=== PATIENT | male | born 1940 | race Caucasian/White ===

== ENCOUNTER 2019-02-09 11:04 | Inpatient (IN) ==
[2019-02-09] MEDS ORDERED: 0.9 % Sodium Chloride 1,000 ML ONE ×2 (11:51→13:32)
[2019-02-09] MEDS ORDERED: *HR* Phenylephrine 10 MG/ML VIAL ONE (11:51)
[2019-02-09] MEDS ORDERED: Verapamil 5 MG/2 ML VIAL ONE (11:51)
[2019-02-09] MEDS ORDERED: Nitroglycerin 25 MG/250 ML INFUS..BTL IVC ONE (11:52)
[2019-02-09] MEDS ORDERED: *HR* Heparin 10,000 UNIT/10 ML VIAL ONE ×2 (11:52→13:18)
[2019-02-09] MEDS ORDERED: Nitroglycerin 1,000 MCG/10 ML VIAL IV ONE (11:52)
[2019-02-09] MEDS ORDERED: Heparin 1,000 UNITS/500 mL 500 ML ONE ×2 (11:52→14:42)
[2019-02-09] MEDS ORDERED: niCARdipine 20 MG/200 ML MLS IVC ONE (11:52)
--- NOTE | 2019-02-09 12:25 | Pre-Sedation Evaluation ---
Pre-sedation evaluation - Pre-sedation checklist Date of procedure: 02/09/19 Procedure: [facility] Recent Vitals: vs as documented in emr H&P (including ROS) documented in medical record: Yes Previous reaction to sedatives/anesthetics: No Dietary Status: NPO after Midnight Airway Assessment: Patient can open mouth completely, TMJ function normal ASA Classification *see protocol: CLASS III-Severe systemic disease Plan of Care: Pt appropriate candidate for procedure/moderate/conscious sedation, Risks/benefits of procedure/sedation discussed w/ patient/family, If not NPO; Risk of intake outweiged by necessity to perform procedure Cardiac Registry (Cardio Only) - Functional Capacity Functional Capacity: >=4 METS with symptoms - Clincal Frailty Scale Clinical Frailty Scale: Managing Well
[2019-02-09] MEDS: 0.9 % Sodium Chloride 1,000 ML IVC SCH ×2 (12:27→19:15)
--- NOTE | 2019-02-09 12:29 | History & Physical Report ---
Date of Encounter: 02/09/19 Time of Encounter: 12:30 24 Hour HP Update - Instructions Instructions: If the History and Physical is less than 30 days old and was completed prior to A.M. admission and or procedure and has NOT been updated on calendar day of procedure please complete this update prior to performing procedure. - Update Patient reports changes in Medical Condition: No Changes in examination, assessment, or condition: No Changes in Medication: No Preop tests/diagnostics Reviewed: Yes Surgery Remains Indicated: Yes Consent for Planned Operative Procedure(s) Verified: Yes - Attending Attestation Patient severe LAD stenosis 95%, responded very poorly to PTCA last week, thus rotational atherectomy was deemed best option for optimal revascularization outcome for patient. A/R/B of high risk rotational atherectomy PCI of LAD with severe systolic congestive heart failure EF 25%, NSTEMI discussed with patient and family including elevated risk of /CVA/emergency surgery/bleeding/SUMAYA/MT but still <5%. They aware and agreeable with proceeding.
[2019-02-09] MEDS ORDERED: *HR* Ticagrelor 90 MG TABLET ONE (12:32)
[2019-02-09] MEDS ORDERED: *HR* FentaNYL (PF) 100 MCG/2 ML VIAL ONE (12:50)
[2019-02-09] MEDS ORDERED: *HR* Midazolam HCl 2 MG/2 ML VIAL ONE ×2 (12:50→13:07)
[2019-02-09] MEDS ORDERED: Iopamidol 125 ML INFUS..BTL ONE (12:52)
[2019-02-09] MEDS ORDERED: D5% in Water 250 ML ONE (12:59)
[2019-02-09] MEDS ORDERED: Morphine Sulfate 2 MG/ML SYRINGE IVP PRN (15:27)
[2019-02-09] MEDS ORDERED: Ondansetron 4 MG/2 ML VIAL IVP PRN (15:27)
--- NOTE | 2019-02-09 15:45 | Invasive Diagnostic Lab Proc ---
Name: yTrone Lance Date of Study: 02/09/2019 Date: 1940 Ht: 68.0in Medical Record#: [id number] Age: 79 Wt: 145.00lb Gender: Male BSA: 1.78 Order #: [id number] BMI: 22.05 Physicians Procedure Physician: Shaan Stewart MD, [facility] Referring MD: Shima montoya team Referring MD: Staff Name Position Time In MaddyKati RN Pre-Op Nurse 11:30 AM Saundra Almanzar RN Pre-Op Nurse 11:30 AM Radha Ospina RT (R) Monitor 03:37 PM Sites, Ana RT (R) Scrub 03:38 PM Kodak Berry RN Wet Roller 03:38 PM Procedures Performed Procedure L HRT ARTERY/VENTRICLE ANGIO PRQ CARD STENT/ATH/ANGIO 1st VSL Insert VAD artery access PRQ CARD JOSEFA STENT W/ANGIO 1 VSL IVUS CORONARY 1ST VESSEL S&I Pre-Procedure Checklist Informed consent is complete signed and on chart. H&P is on chart. ID band is on and ID verified with patient. Patient NPO for procedure The procedure was described for the patient and questions were answered. ECG is on chart. Plan of Care Patient will tolerate the procedure without complications. Adequate level of comfort will be maintained. Hemodynamics will remain stable Patient will recover from procedure without complications. Respiratory function will be maintained. Cardiac rhythm will remain stable. Patient temperature will be maintained. Patient and/or family have verbalized understanding of the procedure. Patient Education Chief Complaint/Reason for Test: Cardiac Cath Developmental Category: Geriatric (65+ years) Developmentally Appropriate for Age: Yes Learning Barriers: None Education Needs: Procedure Education Method: Verbal Information Taught: Cardiac Cath Educational Evaluation: Able to repeat information Intravenous Access Time IV Size Location DC'd Fluid/Drip Rate Units RN 11:58 AM Started with 20g 1 1/4" Lt Wrist 0.9NaCl 25 ml/hr Saundra Almanzar RN Allergies No Known Allergies Vital Signs Time BP (mmHg) HR (bpm) O2 Sat. RR (bpm) LOC 11:41 AM 125 / 76 61 100 % 16 5 = Fully awake and oriented or at pre-proc level 12:51 PM / % 5 = Fully awake and oriented or at pre-proc level 12:51 PM / % 4 = Oriented but drowsy 01:06 PM / % 4 = Oriented but drowsy 01:21 PM / % 4 = Oriented but drowsy 01:36 PM / % 4 = Oriented but drowsy 01:51 PM / % 4 = Oriented but drowsy 02:06 PM / % 4 = Oriented but drowsy 02:21 PM / % 4 = Oriented but drowsy 02:36 PM / % 4 = Oriented but drowsy 02:52 PM / % 4 = Oriented but drowsy 12:51 PM 158 / 86 58 100 % 17 12:55 PM 129 / 76 86 97 % 15 01:00 PM 125 / 70 64 98 % 16 01:05 PM 126 / 78 62 99 % 19 01:10 PM 123 / 74 60 97 % 16 01:15 PM 103 / 76 62 98 % 21 01:20 PM 85 / 56 79 96 % 14 01:25 PM 73 / 49 52 96 % 18 01:28 PM 64 / 48 48 98 % 13 01:30 PM 127 / 91 57 98 % 16 01:35 PM 129 / 92 64 98 % 15 01:40 PM 132 / 89 58 99 % 16 01:45 PM 116 / 88 89 98 % 13 01:50 PM 116 / 91 64 99 % 18 01:56 PM 120 / 93 74 99 % 13 02:01 PM 139 / 100 70 100 % 15 02:05 PM 102 / 87 107 100 % 16 02:07 PM 97 / 65 67 95 % 18 02:08 PM 86 / 70 56 97 % 12 02:11 PM 105 / 54 59 99 % 13 02:16 PM 134 / 96 62 96 % 14 02:20 PM 140 / 90 65 96 % 14 02:25 PM 141 / 96 68 99 % 17 02:30 PM 143 / 100 66 97 % 16 02:36 PM 184 / 122 80 99 % 14 02:40 PM 161 / 111 70 100 % 11 02:45 PM 125 / 106 73 96 % 11 02:50 PM 134 / 109 87 97 % 15 02:55 PM 139 / 108 61 99 % 17 03:00 PM 144 / 107 68 100 % 25 03:05 PM 152 / 105 73 99 % 20 03:10 PM 153 / 100 73 100 % 17 03:15 PM 156 / 104 91 100 % 13 03:20 PM 159 / 103 91 100 % 18 Procedural Medications Time Medication Dose Units Method Given By 12:40 PM Brilinta 180 mg Orally Lavaca, Saundra RN 12:51 PM Oxygen 2 L/min nasal cannula Kodak Berry RN 12:51 PM Versed 2 mg Intravenous Kodak Berry RN 12:51 PM Fentanyl 50 mcg Intravenous Kodak Berry RN 01:06 PM Lidocaine 2% 18 ml Subcutaneous Shaan Stewart MD, [facility] 01:07 PM Versed 1 mg Intravenous Kodak Berry RN 01:07 PM Fentanyl 25 mcg Intravenous Kodak Berry RN 01:17 PM Heparin 4000 units Intravenous Kodak Berry RN 01:18 PM Lidocaine 2% 20 ml Subcutaneous Shaan Stewart MD, [facility] 01:29 PM Neosynephrine 100 mcg Intravenous Kodak Berry RN 02:04 PM Nitroglycerin 200 mcg Intracoronary Shaan Stewart MD 02:09 PM Neosporin 50 mcg Intravenous Kodak Berry RN 02:09 PM Dopamine 10 mg/kg/min Intravenous Kodak Berry RN 02:34 PM Versed 1 mg Intravenous Kodak Berry RN ASA Classification: CLASS III- Severe systemic disease (i.e. prior AMI, diabetes with vascular complications, morbid obesity) Elda Score Preprocedure Postprocedure Activity 2- Moves 4 extremities sustained head lift Activity 2- Moves 4 extremities sustained head lift Circulation 2- SBP +/= 20 points of pre-anesthetic level Circulation 2- SBP +/= 20 points of pre-anesthetic level Consciousness 2- Awake and alert oriented x 3 Consciousness 2- Awake and alert oriented x 3 O2 Saturation 2- Able to maintain O2 satruation of 92% on room air O2 Saturation 2- Able to maintain O2 satruation of 92% on room air Respiratory 2- Able to deep breathe and cough well Respiratory 2- Able to deep breathe and cough well Total Score 10 Total Score 10 Contrast Agent: Isovue Diagnostic Contrast: 108 ml Total Contrast: 108 ml Fluoro Dose: 30 mGy Activated Clotting Time Time Seconds to Clot 01:25 PM 264 01:47 PM 01:55 PM 297 02:14 PM 325 02:47 PM 316 03:12 PM 224 Procedure Log Time Note Enter By 12:40 PM Time: 12:40 Brilinta 180 mg Orally Given by Saundra Almanzar RN [email or web address] 12:40 PM pt chewed Brilinta [email or web address] 12:47 PM Physician arrived 12:47 [facility] 12:47 PM Eric and raine completed [facility] 12:47 PM Sign in performed according to hospital policy. Informed consent was obtained. [facility] 12:49 PM CathStat 12:49 PM Vitals capture started with the following parameters, Patient=Adult, Interval=5 min, Initial Llzhbgqu=405 mmHg, Deflation Rate=3 mmHg, Cuff placed on Right Arm 12:51 PM HR=58 bpm, UWDQ=293/86 mmhg, FtA9=102.0 %, Resp=17 B/min 12:51 PM Time: 12:51 Patient comfortable and pain free: Yes [facility] :51 PM Time: :51LOC: 5 = Fully awake and oriented or at pre-proc level [facility] 12:51 PM Pt arrived to blood bank laboratory professional 2 at 12:51 [facility] 12:51 PM Patient charges- Angio tray pack, Navilyst 3mm J, Pulse Oximetry and ACIST tubing and transducer [facility] 12:51 PM Hair removed from procedure site in holding area using clippers. Bilateral groin prepped with Chloraprep by Radha Ospina), then patient was draped. Skin intact. [facility] :51 PM Time: 12:51 Oxygen on at 2 L/min per nasal cannula by Kodak Berry RN [facility] 12:51 PM Time: 12:51 Versed 2 mg Intravenous Given by Kodka Berry RN [facility] 12:51 PM Time: 12:51 Fentanyl 50 mcg Intravenous Given by Kodak Berry RN [facility] 12:52 PM Procedure start 12:50 [facility] 12:53 PM Recorded ECG: HR=59 Condition=Condition 1 12:54 PM ASA Class CLASS III- Severe systemic disease (i.e. prior AMI, diabetes with vascular complications, morbid obesity) [facility] 12:54 Inflation device was opened. [facility] 12:55 PM HR=86 bpm, ULHC=591/76 mmhg, SpO2=97.0 %, Resp=15 B/min 12:58 PM Pressure channel 1 zeroed. 01:00 PM HR=64 bpm, JAWE=397/70 mmhg, SpO2=98.0 %, Resp=16 B/min 01:05 PM HR=62 bpm, SYZA=598/78 mmhg, SpO2=99.0 %, Resp=19 B/min 01:06 PM Time: 12:51LOC: 4 = Oriented but drowsy [facility] 01:06 PM Time: 12:51 Patient comfortable and pain free: Yes jh:[email or web address] PM Time out was performed according to hospital policy. Conscious sedation and anesthesia was achieved (see medication log with in this report above) : PM Time: 13:06 18 ml Lidocaine 2% to right groin Subcutaneous Given by Shaan Stewart MD, [facility]:07 PM Time: 13:07 Versed 1 mg Intravenous Given by Kodak Berry RN usama:07 PM Time: 13:07 Fentanyl 25 mcg Intravenous Given by Kodak Beryr RN 01:09 PM Micro-Introducer Kit utilized for sheath placement 01:10 PM HR=60 bpm, EMLL=180/74 mmhg, SpO2=97.0 %, Resp=16 B/min 01:10 PM Bolus angiogram of right Femoral complete: 4 ml/sec for a total of 7 mls :10 PM Recorded Pressure: Ao, HR=66, Condition=Condition 1 (Aorta) Ao 118/57/79 01:12 PM perclose inserting into R groin. :15 PM HR=62 bpm, WBTM=769/76 mmhg, SpO2=98.0 %, Resp=21 B/min 01:16 PM An injection of 4 ml. of 7 was used for angiography of the R femoral in the MIKE projection :17 PM Impella 14 Fr. Sheath inserted. :17 PM Time: 13:17 Heparin 4000 units Intravenous Given by Kodak Berry RN :18 PM Time: 13:18 20 ml Lidocaine 2% to left groin Subcutaneous Given by Shaan Stewart MD, [facility]:19 PM Micro-Introducer Kit utilized for sheath placement 01:20 PM Access obtained by percutaneous puncture. 6Fr 10cm Terumo [place] sheath placed in left Femoral artery. [id number] :20 PM HR=79 bpm, NIBP=85/56 mmhg, SpO2=96.0 %, Resp=14 B/min 01:21 PM Time: 13:06LOC: 4 = Oriented but drowsy :21 PM Time: 13:06 Patient comfortable and pain free: Yes :24 PM 0.035 145cm Navilyst 3mmJ wire [id number] 01:24 PM 5Fr Pigtail catheter inserted over the wire [facility] amil 01:25 PM HR=52 bpm, NIBP=73/49 mmhg, SpO2=96.0 %, Resp=18 B/min 01:25 PM At 13:25 the ACT was 264 seconds. amil 01:26 PM Catheter removed amil:27 PM Vitals capture stopped. 01:27 PM Vitals capture started with the following parameters, Patient=Adult, Interval=5 min, Initial Djloalzy=636 mmHg, Deflation Rate=3 mmHg, Cuff placed on Right Arm 01:28 PM HR=48 bpm, NIBP=64/48 mmhg, SpO2=98.0 %, Resp=13 B/min 01:28 PM Perfusion in lab to assist with Impella device.Charla Mims. :28 PM Impella catheter inserted accrossed valve and position in left ventricle. .018 wire removed. Catheter attached to pump. amil:29 PM .018 wire removed. amil:29 PM Vitals capture stopped. 01:29 PM Vitals capture started with the following parameters, Patient=Adult, Interval=5 min, Initial Wloyspkz=400 mmHg, Deflation Rate=3 mmHg, Cuff placed on Right Arm 01:30 PM Time: 13:29 Neosynephrine 100 mcg Intravenous Given by Kodak Berry RN 01:30 PM HR=57 bpm, FNBW=248/91 mmhg, SpO2=98.0 %, Resp=16 B/min 01:30 PM 6Fr CLS 3.5 Runway guide catheter was used to cannulate the PCI vessel successfully. reused? No :31 PM .035 VSI- Lucio Torque 150cm guide wire across target lesion- successful. reused? No :31 PM Impella Pump started in auto. amil 01:35 PM HR=64 bpm, JTPF=387/92 mmhg, SpO2=98.0 %, Resp=15 B/min 01:36 PM Time: 13:21 Patient comfortable and pain free: Yes :36 PM Time: 13:21LOC: 4 = Oriented but drowsy jhamilton 01:40 PM HR=58 bpm, TAOY=492/89 mmhg, SpO2=99.0 %, Resp=16 B/min 01:41 PM 0.009 x 330 RotaWire advanced amil 01:45 PM 1.5mm RotaLink Plus rotoblator catheter placed into Proximal LAD jhamil 01:45 PM HR=89 bpm, MVKH=949/88 mmhg, SpO2=98.0 %, Resp=13 B/min 01:46 PM Rotational athrectomy completed at 165 rpm for 25 seconds jhamilton 01:46 PM Rotational athrectomy completed at 164 rpm for 10 seconds amil 01:48 PM At 13:47 the ACT was greater than 400 seconds. amil 01:49 PM Fifi removed. 01:49 PM Recorded Pressure: Ao, HR=82, Condition=Condition 1 (Aorta) Ao 108/81/92 01:50 PM HR=64 bpm, DZAO=253/91 mmhg, SpO2=99.0 %, Resp=18 B/min 01:51 PM Time: 13:36LOC: 4 = Oriented but drowsy 01:51 PM Time: 13:36 Patient comfortable and pain free: Yes amil 01:52 PM .014 [place] 190cm guide wire across target lesion- successful. reused? No amil 01:53 PM rota wire out. amil 01:54 PM 3.0 mm x 10 mm Pe[place]ody CB MR cutting balloon across target lesion- successful. reused? No amil 01:55 PM Lesion found in Proximal LAD. Pre Stenosis: 90 Pre BARBARA Flow: 01:55 PM At 13:55 the ACT was 297 seconds. 01:56 PM HR=74 bpm, QEYT=810/93 mmhg, SpO2=99.0 %, Resp=13 B/min 01:56 PM Cutting Balloon inflated @ 10 samy for 30 seconds amil 01:57 PM Cutting Balloon inflated @ 10 samy for 27 seconds amilton 01:57 PM Cutting Balloon inflated @ 10 samy for 30 seconds amilton 01:59 PM Recorded Pressure: Ao, HR=87, Condition=Condition 1 (Aorta) Ao 128/79/98 02:01 PM HR=70 bpm, SHSC=208/100 mmhg, IsD0=680.0 %, Resp=15 B/min 02:04 PM Time: 14:04 Nitroglycerin 200 mcg Intracoronary Given by Shaan Stewart MD 02:05 PM RS=175 bpm, UUSF=503/87 mmhg, YgQ1=845.0 %, Resp=16 B/min 02:05 PM 3.6Fr/40mHz [employer] Opti Cross IVUS catheter was inserted into guide catheter and advanced to lesion. IVUS study was done and the catheter was removed. 02:06 PM NIBP STAT measurement started. 02:06 PM Time: 13:51 Patient comfortable and pain free: 02:06 PM Time: 13:51LOC: 4 = Oriented but drowsy 02:07 PM HR=67 bpm, NIBP=97/65 mmhg, SpO2=95.0 %, Resp=18 B/min 02:08 PM NIBP STAT measurement started. 02:08 PM HR=56 bpm, NIBP=86/70 mmhg, SpO2=97.0 %, Resp=12 B/min 02:09 PM Time: 14:09 Neosporin 50 mcg Intravenous Given by Kodak Berry RN daysi 02:11 PM NIBP STAT measurement started. 02:11 PM Time: 14:09 Dopamine 10 mg/kg/min Intravenous Given by Kodak Berry RN Quick pump 02:11 PM HR=59 bpm, MCKC=043/54 mmhg, SpO2=99.0 %, Resp=13 B/min 02:12 PM IVUS catheter removed intact 02:15 PM At 14:14 the ACT was 325 seconds. 02:15 PM .014 PT Graphix 182cm guide wire across target lesion- successful. reused? No 02:15 PM 3.5mm x 28mm Synergy drug-eluting stent across target lesion- successful Lot #[id number] 02:16 PM HR=62 bpm, TVVE=303/96 mmhg, SpO2=96.0 %, Resp=14 B/min 02:18 PM Recorded Pressure: Ao, HR=63, Condition=Condition 1 (Aorta) Ao 119/86/101 02:20 PM HR=65 bpm, NAKZ=589/90 mmhg, SpO2=96.0 %, Resp=14 B/min 02:20 PM Stent deployed @ 16 samy for 22 seconds 02:21 PM Time: 14:06LOC: 4 = Oriented but drowsy 02:21 PM Time: 14:06 Patient comfortable and pain free: Yes jhamilton 02:22 PM Stent delivery system removed intact. jhamilton 02:24 PM 4.0 mm x 15mm NC Emerge balloon across target lesion- successful. reused? No jhamilton 02:24 PM Balloon inflated @ 12 samy for 15 seconds jhamilton 02:25 PM Balloon inflated @ 18 samy for 17 seconds jhamilton 02:25 PM HR=68 bpm, BDJH=689/96 mmhg, SpO2=99.0 %, Resp=17 B/min 02:26 PM Balloon inflated @ 16 samy for 18 seconds jhamilton 02:26 PM Balloon inflated @ 12 samy for 9 seconds jhamilton 02:27 PM Recorded Pressure: Ao, HR=70, Condition=Condition 1 (Aorta) Ao 121/87/100 02:27 PM Balloon catheter removed intact. jhamilton 02:29 PM Proximal Left Anterior Descending Coronary Artery with 90% stenosis. If graft is supplying this territory, 0 % stenosis. jhamilton 02:30 PM HR=66 bpm, JVBF=037/100 mmhg, SpO2=97.0 %, Resp=16 B/min 02:33 PM Dopamine drip stopped. jhamilton 02:33 PM 3.5 mm x [address] Pe[place]ody CB MR cutting balloon across target lesion- successful. reused? No amil 02:34 PM Time: 14:34 Versed 1 mg Intravenous Given by Kodak Berry RN jhamil 02:35 PM Peabody cutting balloon removed intact and undeployed. jhamilton 02:36 PM Guide wire removed intact. jhamilton 02:36 PM HR=80 bpm, DRKL=688/122 mmhg, SpO2=99.0 %, Resp=14 B/min 02:36 PM .014 PT Graphix 182cm guide wire across target lesion- successful. reused? No jhamilton 02:36 PM Recorded Pressure: Ao, HR=77, Condition=Condition 1 (Aorta) Ao 175/106/133 02:36 PM Time: 14:21 Patient comfortable and pain free: Yes jhamilton 02:36 PM Time: 14:21LOC: 4 = Oriented but drowsy jhamilton 02:40 PM HR=70 bpm, KZHE=487/111 mmhg, BbZ1=114.0 %, Resp=11 B/min 02:45 PM HR=73 bpm, AJZJ=769/106 mmhg, SpO2=96.0 %, Resp=11 B/min 02:46 PM 6Fr Guidezilla advanced jhamilton 02:47 PM At 14:47 the ACT was 316 seconds. amil 02:47 PM 3.5 mm x 12mm NC Emerge balloon across target lesion- successful. reused? No jhamilton 02:48 PM Balloon inflated @ 18 samy for 20 seconds jhamilton 02:48 PM Balloon inflated @ 16 samy for 10 seconds jhamilton 02:49 PM NC Balloon catheter removed intact. jhamilton 02:50 PM reinserting 3.5 x 15 [place] cutting balloon. jhamilton 02:50 PM HR=87 bpm, YSYU=891/109 mmhg, SpO2=97.0 %, Resp=15 B/min 02:51 PM removed Pe[place]ody cutting balloon intact, undeployed. amil 02:52 PM Time: 14:36LOC: 4 = Oriented but drowsy amilton 02:52 PM Time: 14:36 Patient comfortable and pain free: Yes amilton 02:52 PM Recorded Pressure: Ao, HR=68, Condition=Condition 1 (Aorta) Ao 122/77/93 02:53 PM 3.5mm x 12mm Synergy drug-eluting stent across target lesion- successful Lot #[id number] amil 02:55 PM HR=61 bpm, BZBC=530/108 mmhg, SpO2=99.0 %, Resp=17 B/min 02:57 PM Stent deployed @ 16 samy for 18 seconds amil 02:58 PM Stent delivery system removed intact. amil 02:59 PM reinserting 4.0 x 15 NC Emerge Balloon. amil 03:00 PM Balloon inflated @ 14 samy for 12 seconds jhamilton 03:00 PM HR=68 bpm, PNSZ=582/107 mmhg, XkP7=631.0 %, Resp=25 B/min 03:01 PM Balloon inflated @ 14 samy for 14 seconds jhamilton 03:01 PM Recorded Pressure: Ao, HR=76, Condition=Condition 1 (Aorta) Ao 117/97/106 03:01 PM NC Balloon catheter removed intact. jhamilton 03:02 PM Recorded Pressure: Ao, HR=64, Condition=Condition 1 (Aorta) Ao 141/95/113 03:04 PM Guidezilla removed intact. jhamilton 03:05 PM HR=73 bpm, DIXZ=249/105 mmhg, SpO2=99.0 %, Resp=20 B/min 03:06 PM jhamil 03:07 PM reinserting 3.5 x 12 NC Emerge balloon amil 03:07 PM Time: 14:52LOC: 4 = Oriented but drowsy jhamilton 03:07 PM Lesion found in 1st Marginal. Pre Stenosis: 95 Pre BARBARA Flow: 3: Complete and Brisk Flow/Perfusion jhamil 03:08 PM Balloon catheter removed intact. amil 03:08 PM Guide wire removed intact. jhamilton 03:08 PM Guide catheter removed intact. jhamilton 03:10 PM HR=73 bpm, SGVZ=639/100 mmhg, YmB6=299.0 %, Resp=17 B/min 03:12 PM At 15:12 the ACT was 224 seconds. amil 03:13 PM weaning Impella. amil 03:14 PM Impella Pump turned off. amil 03:14 PM Procedure completed at 15:14 02/09/2019amil 03:15 PM HR=91 bpm, NGEC=197/104 mmhg, PhW6=319.0 %, Resp=13 B/min 03:15 PM Did you address BARBARA flow and Dominance? YesCoronary Dominance: Left amilton 03:17 PM Sign out completed: Radiation Dose 314.22 mGy, 30.2 Gy/cm2 Fluoro Time: 25.5 Isovue 370 - 200ml contrast 108 ml given by Shaan Stewart MD, [facility]. Complications: None. 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 Sedation minutes 203. Cardiac Rehab Consult needed: Yes. Confirmed administered medications: Yes amil 03:19 PM Isovue 370 - 125ml,1 Bottle(s) used. amil 03:19 PM Estimated Blood Loss: minimal amil 03:19 PM Post ECG NSR jhamil 03:19 PM Post Blood Pressure 156/104 jhamilton 03:20 PM Information taught Cardiac Cath, PCI, IVUS/Flowire, and Rotoblator amil 03:20 PM Education needs Procedure, Plan of Care, and Responsibilities of Patient in Care amil 03:20 PM Learning barriers :None amil 03:20 PM Education Methods Verbal amil 03:20 PM Education evaluation Able to repeat information [facility] 03:20 PM HR=91 bpm, YDXC=733/103 mmhg, HeZ8=434.0 %, Resp=18 B/min 03:21 PM Sheath left in place to be pulled on floor/holding area [facility] 03:21 PM Sheath left in place to be pulled on floor/holding area [facility] 03:21 PM Site status No bleeding/ No Hematoma - Rt Groin as reported by Sites, Ana RT (R) at 15:21 [facility] 03:21 PM Opsite applied [facility] 03:27 PM Report given to Kati WOODY Pt taken to ICU Room #4. 15:27 [facility] 03:27 PM Patient out of room: 15:27 [facility] 03:27 PM Family placed in consult room. [facility] 03:37 PM Radha Ospina RT (R) Position: Monitor Time in: 15:37 [facility] 03:38 PM Sites, Ana RT (R) Position: Scrub Time in: 15:38 [facility] 03:38 PM Kodak Berry RN Position: Wet Roller Time in: 15:38 [facility] Complications Complication None Hemodynamics Pressures Site Systolic/A Wave Diastolic/V Wave Mean AO 118 57 79 AO 108 81 92 AO 128 79 98 AO 119 86 101 AO 121 87 100 AO 175 106 133 AO 122 77 93 AO 117 97 106 AO 141 95 113 Post Procedure Information Blood Pressure: 156/104 mmHg Rhythm: NSR Site Checks Time Location Status Staff Sheath In? Note 03:21 PM Rt Groin No bleeding/ No Hematoma Sites, Ana RT (R) Pulses Time Site Pre-Procedure Post-Procedure Note 02/09/2019 11:41:00 AM Bilateral DP & PT 2+ 02/09/2019 11:42:00 AM Bilateral radial 1+ Updated by Kodak Berry RN on 02/09/2019 3:38:14 PM electronically signed on 02/09/2019 3:39:28 PM with status of Final
--- NOTE | 2019-02-09 16:08 | Event Note ---
Date of Encounter: 02/09/19 Time of Encounter: 16:00 - Cardiology Event Note Successful rotational atherectomy of LAD with pLVAD support with EF 25-30% and PCI w JOSEFA x 2 overlapping proximal mid with IVUS guidance (heavily calcified with undersized stent / stent fracture).
[2019-02-09 16:21] LABS: Blood Urea Nitrogen 16 mg/dL (8-23)
[2019-02-09] MEDS: Furosemide 40 MG TABLET PO SCH (18:26)
[2019-02-09] MEDS ORDERED: Perflutren Lipid Microsphere 1.3 ML in 0.9 % Sodium Chloride 8.7 ML IVP ONE (19:19)
[2019-02-09] MEDS: *HR* Ticagrelor 90 MG TABLET PO SCH (19:26)
[2019-02-09] MEDS: Multivit/Ca/Min/Fe/FA 1 TAB TABLET PO SCH (19:30)
[2019-02-10 04:14] LABS: Basophils % 0.5 %; Eosinophils # 0.3 K/mcL (0.0-0.6); Eosinophils % 4.3 %; Hematocrit 32.6 % (37.5-50.1); Hemoglobin 11.5 g/dL (12.9-16.9); Immature Granulocytes % 0.3 % (0-4); Lymphocytes # 0.8 K/mcL (0.6-4.6); Lymphocytes % 13.5 %; Mean Corpuscular HGB Conc 35.3 g/dL (31.6-35.5); Mean Corpuscular Hemoglobin 31.4 pg (28.0-33.3); Mean Corpuscular Volume 89.1 fL (83.0-100.0); Mean Platelet Volume 9.1 fL (9.4-12.4); Monocytes # 0.5 K/mcL (0.0-1.3); Monocytes % 8.7 %; Neutrophils # 4.3 K/mcL (1.6-8.9); Platelet Count 113 K/mcL (140-400); Red Blood Count 3.66 M/mcL (4.19-5.50); Red Cell Distribution Width 12.5 % (11.5-14.5); Segmented Neutrophils % 72.7 %; White Blood Count 5.9 K/mcL (4.3-11.1)
[2019-02-10 04:32] LABS: BUN/Creatinine Ratio 25 (6-26); Blood Urea Nitrogen 19 mg/dL (8-23); Calcium 8.3 mg/dL (8.6-10.3); Carbon Dioxide 27 mEq/L (23-29); Chloride 102 mEq/L (98-107); Glucose 97 mg/dL (70-105); Osmolality,Calculated 284 (280-300); Potassium 3.6 mEq/L (3.5-5.1); Sodium 136 mEq/L (136-145); eGFR For African Americans > 60 (> 60); eGFR For Non-African Americans > 60 (> 60)
[2019-02-10] MEDS: 0.9 % Sodium Chloride 1,000 ML IVC SCH (05:13)
[2019-02-10] MEDS: *HR* Ticagrelor 90 MG TABLET PO SCH (07:59)
[2019-02-10] MEDS: Multivit/Ca/Min/Fe/FA 1 TAB TABLET PO SCH (07:59)
[2019-02-10] MEDS: Furosemide 40 MG TABLET PO SCH (07:59)
[2019-02-10 08:58] VITALS: BP 144/91
[2019-02-10] MEDS ORDERED: Aspirin 81 MG TAB.CHEW PO SCH (09:00)
[2019-02-10] MEDS ORDERED: Metoprolol XL (24 HR) Succ 25 MG TAB.ER.24H PO SCH (09:00)
[2019-02-10] MEDS ORDERED: Lisinopril 20 MG TABLET PO SCH (09:00)
--- NOTE | 2019-02-10 12:25 | Discharge Summary ---
- NOTES TO OUTPATIENT PROVIDER Notes to Outpatient Provider: Admitted after PCI with impella support. Date of Encounter: 02/10/19 Time of Encounter: 12:25 - Discharge Diagnosis (1) CAD (coronary artery disease) Priority: Primary Status: Acute Comments: Admitted after PCI with impella support. Qualifiers: Coronary Disease-Associated Artery/Lesion type: [place] artery [place] vs. transplanted heart: [place] heart Associated angina: without angina Qualified Code(s): I25.10 - Atherosclerotic heart disease of [place] coronary artery without angina pectoris (2) Ischemic cardiomyopathy Priority: Secondary Status: Chronic Comments: Known ICM. - Hospital Course Hospital course: Mr. Lance is a 79 year old male who was admitted after [facility] with PCI to LAD with impella support with JOSEFA. Patient denies chest pain. Denies worsening shortness of breath. Patient denies issues walking, using legs. Patient is on asa, brilinta, statin, BB, anup inhibitor. Educated on dual anti-platelet therapy uninterrupted for at least one year, states understanding. Brilinta assistance card given to patient. Patient educated to call cardiology with any issues obtaining medication, states understanding. TTE was performed with LVEF 25-30%. ON BB and anup inhibitor. Euvolemic on exam. Right groin access site with mild ecchymosis, no hematoma. Left groin access site with mild ecchymosis, no hematoma. Groin site access site management education reviewed with patient and family, state understanding. Patient is being prepped for discharge home today in stable condition. All questions answered. Patient will follow with [facility], follow up set. - Time Spent with Patient Total time spent providing and/or coordinating discharge services: Less than 30 minutes - Discharge Medications Prescriptions: New Ticagrelor [Brilinta] 90 mg PO BID #60 tablet Continued Lisinopril [Zestril] 40 mg PO DAILY Omeprazole 20 mg PO DAILY Furosemide [Lasix] 40 mg PO BID 30 Days #60 tab Metoprolol Succinate [Toprol Xl] 25 mg PO DAILY 30 Days #30 tab.er.24h Atorvastatin [Lipitor] 40 mg PO HS #30 tablet Aspirin 81 mg PO DAILY tab.chew Vit A/Vit C/Vit E/Zinc/Copper [Icaps Areds Softgel] 1 each PO BID Home Medications: Lisinopril [Zestril] 40 mg PO DAILY 06/25/16 [History] Omeprazole 20 mg PO DAILY 06/25/16 [History] Aspirin 81 mg PO DAILY tab.chew 02/03/19 [Rx] Atorvastatin [Lipitor] 40 mg PO HS #30 tablet 02/03/19 [Rx] Furosemide [Lasix] 40 mg PO BID 30 Days #60 tab 02/03/19 [Rx] Metoprolol Succinate [Toprol Xl] 25 mg PO DAILY 30 Days #30 tab.er.24h 02/03/19 [Rx] Vit A/Vit C/Vit E/Zinc/Copper [Icaps Areds Softgel] 1 each PO BID 02/09/19 [History] Ticagrelor [Brilinta] 90 mg PO BID #60 tablet 02/10/19 [Rx] Allergies/Adverse Reactions: Allergy/AdvReac Type Severity Reaction Status Date / Time No Known Allergies Allergy Verified 02/01/19 00:40 Date of admission: 02/09/19 15:33 [facility] care physician: [facility] Consults: 02/09/19 15:27 Consult to Cardiac Rehabilitation-Phase1 [CONS] Routine Comment: Reason for Consult: AMI Call Completed: Yes Consult to Nurse Navigator [CONS] Routine Comment: Discharging clinician: Franchesca Riddle Anticipated date of discharge: 02/10/19 Physical Examination Vital Signs, Last 4 Hours Temp Pulse Resp Pulse Ox 02/10/19 10:47 98.0 F 02/10/19 09:00 87 16 99 General: Conversant, No Apparent Distress HEENT: Atraumatic, Normocephaly, Mucus Membranes Moist Neck: No JVD, Normal carotid pulses Cardiac: Reg Rate and Rhythm, Normal S1 and S2, No Murmur Lungs: Normal Breath Sounds, No Wheeze, Rales, Rhonchi Neuro: Alert and responsive, No focal deficits noted Abdomen: Soft, Non-Tender Skin: No rashes noted on visualized skin, Other (Bilateral groin access sites with mild ecchymosis, no hematoma. ) Musculoskeletal: No Chest Wall Tenderness Extremities: No Clubbing, No Cyanosis, No Edema, Normal Pulses - Patient Status Disposition: Home, Self-Care Condition: Good Functional capacity at discharge: independent ambulation Overall status at discharge: patient is progressing back to baseline - Discharge Instructions Follow Up With: [facility] [Primary Care Provider] - Additional Instructions: RISK FACTORS: STOP SMOKING: If you smoke, STOP. Smoking or tobacco use significantly increases your risk of heart disease because nicotine causes the arteries to narrow or constrict. It also causes fats to stick to the artery. Your chances of having a heart attack are greatly increased if you continue to smoke. For more information, call the education line for smoking cessation 1-842-QLEVZCB EAT A LOW FAT/CHOLESTEROL/SODIUM DIET: This diet may help reduce your chances of having a heart attack. LIFTING: Avoid lifting anything more than 10 pounds for 5-7 days Prior to straining, laughing, sneezing and/or coughing, apply manual pressure directly over insertion site. ACTIVITY: You may walk or climb stairs as tolerated You can resume sexual activity as tolerated In general, you are encouraged to engage in a minimum of 30 minutes or more of moderate intensity physical activity, such as brisk walking, daily or at least 3-4 times weekly BATHING Do not submerge the site into water (bath tub, hot tub, swimming pool) for 1 week. This can be a source for infection into the blood stream. You may shower after 24 hours SITE CARE: After 24 hours, you may remove the dressing and leave the site open to air. Keep the site clean and dry. Clean gently and pat dry. You can expect bruising and tenderness that gradually resolve within a week or two. Return to work as instructed per your physician Resume driving as instructed per physician Keep all scheduled follow up appointments Resume medications as instructed IMPORTANT: If prescribed a Platelet Aggregation Inhibitor such as, Plavix, Brilinta or Effient: Duration of therapy is minimum one year These medications are often used in combination with Aspirin in prevention of future heart attacks Never discontinue unless consult with your Host/Hostess Head STROKE (CVA) Risk factors for a stroke are: Age, cigarette smoking, diabetes, excessive alcohol consumption, family history, high blood pressure, overweight, physical inactivity, prior stroke, heart attack, diagnosis of carotid artery stenosis or other artery disease. Warning signs: Sudden numbness or weakness of the face, arm or leg; especially on one side of the body, sudden confusion, trouble speaking or understanding, sudden trouble seeing in one or both eyes, sudden trouble walking, dizziness, loss of balance or coordination, sudden severe headache with no cause. Call 911 or go to the Emergency Room. CONGESTIVE HEART FAILURE: If you have been diagnosed with Congestive Heart Failure (CHF) and your symptoms return, make an appointment with your physician Weigh yourself daily. Notify your physician if you have a weight gain of two or more pounds in one day or five or more pounds in one week. If you experience any difficulty breathing, please call 911 BLEEDING: Although the risk of bleeding is minimal, it can happen. If you have any bleeding from the site, apply firm pressure above the puncture site for 10-15 minutes. If the bleeding does not stop, continue manual pressure and call 911 CARDIAC REHABILITATION: If you have had a heart attack or cardiac stents placed, please ask your architecture internship if Cardiac Rehabilitation is right for you. Cardiac Rehabilitation is recommended, beneficial to your health and can improve the following: strengthen your heart, improve ejection fraction, weight reduction, decrease cholesterol levels, lower blood pressure, lower blood sugar, improve stamina and enhance self-image. If you have any questions please call [facility] at [phone]. Contact your physician if: You develop a fever greater than 101 degrees Fahrenheit Your site becomes reddened or has any drainage You have an increase in pain or burning at the site or if a large knot forms at the site. If you experience chest pain, shortness of breath, dizziness, or extreme tiredness, stop the activity and rest. Please notify your physicians office if you experience any of these symptoms and they are not relieved by rest please call 911! - Diet and Activity Activity: increase activity as tolerated (Follow restrictions as above. ) Diet: low fat, low cholesterol, low salt diet
--- NOTE | 2019-02-11 19:51 | Electrocardiograph Report ---
[address] [place], [place] [address] Test Date: 2019-02-09 Pat Name: Tyrone Lance Department: 109 Room: [facility] Gender: Regulated Program Manager: CARMEN : 1940 Requested By: Shaan Stewart Order Number: [id number] Reading MD: Russel Broussard Measurements Intervals [place] Rate: 72 P: 58 MT: 197 QRS: 29 QRSD: 143 T: 119 QT: 480 QTc: 504 Interpretive Statements SINUS RHYTHM WITH OCCASIONAL SUPRAVENTRICULAR PREMATURE COMPLEXES LEFT BUNDLE BRANCH BLOCK Electronically Signed On 02-11-2019 19:49:55 EDT by Russel Broussard
== END 2019-02-10 13:30 | disposition home or self-care (01) | DRG 215 ==
LOC: INVDIALAB 11:04 → ICNU 15:33
PROVIDERS: ADMIT Emergency Medicine; ATTEND Emergency Medicine

== ENCOUNTER 2020-04-06 09:57 | Inpatient (IN) ==
[2020-04-06 10:41] LABS: Basophils # 0.1 K/mcL (0.0-0.2); Basophils % 0.6 %; Eosinophils # 0.4 K/mcL (0.0-0.6); Eosinophils % 5.2 %; Hematocrit 37.6 % (37.5-50.1); Hemoglobin 13.9 g/dL (12.9-16.9); Immature Granulocytes % 0.4 % (0-4); Lymphocytes # 1.2 K/mcL (0.6-4.6); Lymphocytes % 16.1 %; Mean Corpuscular Hemoglobin 30.7 pg (28.0-33.3); Mean Platelet Volume 8.5 fL (9.4-12.4); Monocytes # 0.8 K/mcL (0.0-1.3); Neutrophils # 5.2 K/mcL (1.6-8.9); Platelet Count 168 K/mcL (140-400); Red Blood Count 4.53 M/mcL (4.19-5.50); Red Cell Distribution Width 12.7 % (11.5-14.5); Segmented Neutrophils % 67.7 %; White Blood Count 7.7 K/mcL (4.3-11.1)
[2020-04-06 10:47] LABS: INR 1.1; Prothrombin Time 13.2 Seconds (9.4-12.1)
[2020-04-06 10:50] LABS: Activated Partial Thrombo Time 31.1 Seconds (26.0-36.0)
[2020-04-06 11:07] LABS: Alanine Aminotransferase 15 Units/L (7-52); Albumin 4.6 g/dL (3.5-5.7); Albumin/Globulin Ratio 1.3 (1.1-2.2); Alkaline Phosphatase 117 Units/L (34-104); Aspartate Amino Transferase 31 Units/L (13-39); BUN/Creatinine Ratio 25 (6-26); Bilirubin,Total 1.6 mg/dL (0.3-1.0); Blood Urea Nitrogen 21 mg/dL (8-23); Calcium 9.4 mg/dL (8.6-10.3); Carbon Dioxide 31 mEq/L (23-29); Chloride 77 mEq/L (98-107); Globulin 3.5 g/dL (2.4-3.5); Glucose 106 mg/dL (70-105); Osmolality,Calculated 251 (280-300); Potassium 2.9 mEq/L (3.5-5.1); Sodium 119 mEq/L (136-145); Total Protein 8.1 g/dL (6.4-8.9); Troponin I 0.03 ng/mL (< 0.04); eGFR For African Americans > 60 (> 60); eGFR For Non-African Americans > 60 (> 60)
[2020-04-06] MEDS ORDERED: 0.9 % Sodium Chloride 1,000 ML IV ONE (11:30)
[2020-04-06] MEDS ORDERED: Naloxone 0.4 MG/ML INJ IVP PRN (12:06)
[2020-04-06] MEDS ORDERED: Ondansetron 4 MG/2 ML VIAL IVP PRN (12:06)
[2020-04-06] MEDS ORDERED: 0.9 % Sodium Chloride 1,000 ML IVC SCH (12:15)
[2020-04-06 12:16] LABS: Bilirubin,Urine Negative (Negative); Blood,Urine Negative (Negative); Clarity,Urine Clear (Clear); Color,Urine Colorless (Yellow); Glucose,Urine (UA) Normal (Normal); Ketones,Urine Negative (Negative); Leukocyte Esterase,Urine Negative (Negative); Nitrite,Urine Negative (Negative); Protein,Urine Negative (Neg-Trace); Specific Gravity,Urine 1.007 (1.010-1.025); Urobilinogen,Urine Normal (Normal)
[2020-04-06 14:23] LABS: BUN/Creatinine Ratio 28 (6-26); Blood Urea Nitrogen 21 mg/dL (8-23); Calcium 9.2 mg/dL (8.6-10.3); Carbon Dioxide 32 mEq/L (23-29); Chloride 81 mEq/L (98-107); Glucose 99 mg/dL (70-105); Osmolality,Calculated 259 (280-300); Potassium 2.8 mEq/L (3.5-5.1); Sodium 123 mEq/L (136-145); eGFR For African Americans > 60 (> 60); eGFR For Non-African Americans > 60 (> 60)
[2020-04-06] MEDS ORDERED: Potassium Chloride Elixir 20 MEQ/15 ML UDC PO ONE (14:57)
[2020-04-06] MEDS: 0.9 % Sodium Chloride w KCl 40 MEQ/1,000 ML MLS IVC SCH (15:30)
[2020-04-06 16:52] LABS: BUN/Creatinine Ratio 23 (6-26); Blood Urea Nitrogen 21 mg/dL (8-23); Calcium 8.9 mg/dL (8.6-10.3); Carbon Dioxide 34 mEq/L (23-29); Chloride 81 mEq/L (98-107); Glucose 138 mg/dL (70-105); Osmolality,Calculated 261 (280-300); Potassium 2.8 mEq/L (3.5-5.1); Sodium 123 mEq/L (136-145); eGFR For African Americans > 60 (> 60); eGFR For Non-African Americans > 60 (> 60)
[2020-04-06] MEDS: *HR* Heparin 5,000 UNIT/ML VIAL SQ SCH (18:00)
[2020-04-06 19:57] LABS: BUN/Creatinine Ratio 25 (6-26); Blood Urea Nitrogen 21 mg/dL (8-23); Calcium 8.8 mg/dL (8.6-10.3); Carbon Dioxide 31 mEq/L (23-29); Chloride 84 mEq/L (98-107); Glucose 107 mg/dL (70-105); Osmolality,Calculated 259 (280-300); Potassium 3.2 mEq/L (3.5-5.1); Sodium 123 mEq/L (136-145); eGFR For African Americans > 60 (> 60); eGFR For Non-African Americans > 60 (> 60)
[2020-04-06 23:11] LABS: BUN/Creatinine Ratio 29 (6-26); Blood Urea Nitrogen 22 mg/dL (8-23); Calcium 8.3 mg/dL (8.6-10.3); Carbon Dioxide 27 mEq/L (23-29); Chloride 88 mEq/L (98-107); Glucose 107 mg/dL (70-105); Osmolality,Calculated 260 (280-300); Potassium 3.8 mEq/L (3.5-5.1); Sodium 123 mEq/L (136-145); eGFR For African Americans > 60 (> 60); eGFR For Non-African Americans > 60 (> 60)
[2020-04-07 01:55] LABS: Basophils % 0.7 %; Eosinophils # 0.5 K/mcL (0.0-0.6); Eosinophils % 7.8 %; Hematocrit 32.7 % (37.5-50.1); Immature Granulocytes % 0.2 % (0-4); Lymphocytes # 1.3 K/mcL (0.6-4.6); Lymphocytes % 22.2 %; Mean Corpuscular HGB Conc 36.7 g/dL (31.6-35.5); Mean Corpuscular Hemoglobin 31.1 pg (28.0-33.3); Mean Corpuscular Volume 84.7 fL (83.0-100.0); Mean Platelet Volume 8.9 fL (9.4-12.4); Monocytes # 0.7 K/mcL (0.0-1.3); Monocytes % 12.3 %; Neutrophils # 3.3 K/mcL (1.6-8.9); Platelet Count 120 K/mcL (140-400); Red Blood Count 3.86 M/mcL (4.19-5.50); Red Cell Distribution Width 12.6 % (11.5-14.5); Segmented Neutrophils % 56.8 %; White Blood Count 5.8 K/mcL (4.3-11.1)
[2020-04-07 02:13] LABS: BUN/Creatinine Ratio 26 (6-26); Blood Urea Nitrogen 21 mg/dL (8-23); Calcium 8.5 mg/dL (8.6-10.3); Carbon Dioxide 28 mEq/L (23-29); Chloride 89 mEq/L (98-107); Glucose 94 mg/dL (70-105); Osmolality,Calculated 261 (280-300); Potassium 3.7 mEq/L (3.5-5.1); Sodium 124 mEq/L (136-145); eGFR For African Americans > 60 (> 60); eGFR For Non-African Americans > 60 (> 60)
[2020-04-07] MEDS: *HR* Heparin 5,000 UNIT/ML VIAL SQ SCH ×3 (05:22→18:02)
[2020-04-07 07:22] LABS: BUN/Creatinine Ratio 26 (6-26); Blood Urea Nitrogen 18 mg/dL (8-23); Calcium 8.8 mg/dL (8.6-10.3); Carbon Dioxide 27 mEq/L (23-29); Chloride 92 mEq/L (98-107); Glucose 89 mg/dL (70-105); Osmolality,Calculated 261 (280-300); Potassium 3.8 mEq/L (3.5-5.1); Sodium 125 mEq/L (136-145); eGFR For African Americans > 60 (> 60); eGFR For Non-African Americans > 60 (> 60)
[2020-04-07] MEDS ORDERED: 0.9 % Sodium Chloride 1,000 ML IVC SCH (08:00)
[2020-04-07] MEDS ORDERED: NON-FORMULARY MEDICATION 1 EACH EACH (Zinc Gluconate [Zinc] 50 MG) PO SCH (09:00)
[2020-04-07] MEDS ORDERED: NON-FORMULARY MEDICATION 1 EACH EACH (Ubidecarenone [Coq10] 50 MG) PO SCH (09:00)
[2020-04-07] MEDS: (Vit C/E/Zn/Coppr/Lutein/Zeaxan [Preservision Areds 2) PO SCH (09:13)
[2020-04-07] MEDS: Aspirin 81 MG TAB.CHEW PO SCH (09:25)
[2020-04-07] MEDS: Metoprolol XL (24 HR) Succ 50 MG TAB.ER.24H PO SCH (09:25)
[2020-04-07] MEDS: Cholecalciferol (D-3) 1,000 UNIT (25MCG) TABLET PO SCH (09:25)
[2020-04-07] MEDS: Ascorbic Acid 500 MG TABLET PO SCH (09:25)
[2020-04-07] MEDS: lisinopriL 20 MG TABLET PO SCH (09:25)
[2020-04-07] MEDS: Vitamin B Complex/Vit C/Vit E 1 EACH TABLET PO SCH (09:25)
[2020-04-07] MEDS: 0.9 % Sodium Chloride w KCl 40 MEQ/1,000 ML MLS IVC SCH (11:38)
[2020-04-08] MEDS: *HR* Heparin 5,000 UNIT/ML VIAL SQ SCH ×2 (06:14→18:15)
[2020-04-08] MEDS: 0.9 % Sodium Chloride w KCl 40 MEQ/1,000 ML MLS IVC SCH (06:14)
[2020-04-08 07:30] LABS: Basophils % 0.7 %; Eosinophils # 0.4 K/mcL (0.0-0.6); Eosinophils % 6.5 %; Hematocrit 32.2 % (37.5-50.1); Hemoglobin 11.5 g/dL (12.9-16.9); Immature Granulocytes % 0.4 % (0-4); Lymphocytes # 1.3 K/mcL (0.6-4.6); Mean Corpuscular HGB Conc 35.7 g/dL (31.6-35.5); Mean Corpuscular Hemoglobin 31.3 pg (28.0-33.3); Mean Corpuscular Volume 87.5 fL (83.0-100.0); Mean Platelet Volume 8.8 fL (9.4-12.4); Monocytes # 0.5 K/mcL (0.0-1.3); Monocytes % 9.4 %; Neutrophils # 3.4 K/mcL (1.6-8.9); Platelet Count 112 K/mcL (140-400); Red Blood Count 3.68 M/mcL (4.19-5.50); Red Cell Distribution Width 12.9 % (11.5-14.5); White Blood Count 5.7 K/mcL (4.3-11.1)
[2020-04-08 07:50] LABS: BUN/Creatinine Ratio 23 (6-26); Blood Urea Nitrogen 17 mg/dL (8-23); Calcium 8.6 mg/dL (8.6-10.3); Carbon Dioxide 26 mEq/L (23-29); Chloride 97 mEq/L (98-107); Glucose 93 mg/dL (70-105); Osmolality,Calculated 269 (280-300); Potassium 3.9 mEq/L (3.5-5.1); Sodium 129 mEq/L (136-145); eGFR For African Americans > 60 (> 60); eGFR For Non-African Americans > 60 (> 60)
[2020-04-08] MEDS: (Vit C/E/Zn/Coppr/Lutein/Zeaxan [Preservision Areds 2) PO SCH (08:50)
[2020-04-08] MEDS: Aspirin 81 MG TAB.CHEW PO SCH (08:57)
[2020-04-08] MEDS: Vitamin B Complex/Vit C/Vit E 1 EACH TABLET PO SCH (08:57)
[2020-04-08] MEDS: Cholecalciferol (D-3) 1,000 UNIT (25MCG) TABLET PO SCH (08:57)
[2020-04-08] MEDS: Ascorbic Acid 500 MG TABLET PO SCH (08:57)
[2020-04-08] MEDS: lisinopriL 20 MG TABLET PO SCH (08:57)
[2020-04-08] MEDS: Metoprolol XL (24 HR) Succ 50 MG TAB.ER.24H PO SCH (08:58)
[2020-04-09 00:47] LABS: Hematocrit 30.6 % (37.5-50.1); Hemoglobin 10.8 g/dL (12.9-16.9)
[2020-04-09 01:05] LABS: BUN/Creatinine Ratio 15 (6-26); Blood Urea Nitrogen 11 mg/dL (8-23); Calcium 8.2 mg/dL (8.6-10.3); Carbon Dioxide 24 mEq/L (23-29); Chloride 100 mEq/L (98-107); Glucose 111 mg/dL (70-105); Osmolality,Calculated 270 (280-300); Potassium 3.9 mEq/L (3.5-5.1); Sodium 130 mEq/L (136-145); eGFR For African Americans > 60 (> 60); eGFR For Non-African Americans > 60 (> 60)
[2020-04-09] MEDS: *HR* Heparin 5,000 UNIT/ML VIAL SQ SCH (06:03)
[2020-04-09] MEDS: lisinopriL 20 MG TABLET PO SCH (08:59)
[2020-04-09] MEDS: Cholecalciferol (D-3) 1,000 UNIT (25MCG) TABLET PO SCH (08:59)
[2020-04-09] MEDS: Aspirin 81 MG TAB.CHEW PO SCH (08:59)
[2020-04-09] MEDS: Vitamin B Complex/Vit C/Vit E 1 EACH TABLET PO SCH (08:59)
[2020-04-09] MEDS: Metoprolol XL (24 HR) Succ 50 MG TAB.ER.24H PO SCH (09:00)
[2020-04-09] MEDS: (Vit C/E/Zn/Coppr/Lutein/Zeaxan [Preservision Areds 2) PO SCH (09:00)
[2020-04-09] MEDS: Ascorbic Acid 500 MG TABLET PO SCH (09:00)
[2020-04-09 11:30] VITALS: BP 147/83
== END 2020-04-09 14:08 | disposition home or self-care (01) | DRG 641 ==
LOC: EMEROOARM 09:57 → 3ANU 09:57 → SUATTDRO 12:48 → 3ANU 13:04
PROVIDERS: ADMIT Internal Medicine; ATTEND Family Medicine

== ENCOUNTER 2020-07-27 16:21 | Inpatient (IN) ==
[2020-07-27] MEDS ORDERED: Naloxone 0.4 MG/ML INJ IVP PRN (19:13)
[2020-07-27] MEDS ORDERED: Ondansetron 4 MG/2 ML VIAL IVP PRN (19:13)
[2020-07-27] MEDS ORDERED: 0.9 % Sodium Chloride 1,000 ML IVC SCH (19:15)
[2020-07-27 19:35] LABS: Basophils % 0.7 %; Eosinophils # 0.2 K/mcL (0.0-0.6); Eosinophils % 2.7 %; Hematocrit 36.3 % (37.5-50.1); Hemoglobin 13.3 g/dL (12.9-16.9); Immature Granulocytes % 0.3 % (0-4); Lymphocytes # 1.4 K/mcL (0.6-4.6); Lymphocytes % 23.6 %; Mean Corpuscular HGB Conc 36.6 g/dL (31.6-35.5); Mean Corpuscular Hemoglobin 31.1 pg (28.0-33.3); Mean Corpuscular Volume 84.8 fL (83.0-100.0); Mean Platelet Volume 8.4 fL (9.4-12.4); Monocytes # 0.4 K/mcL (0.0-1.3); Monocytes % 7.4 %; Neutrophils # 3.9 K/mcL (1.6-8.9); Platelet Count 160 K/mcL (140-400); Red Blood Count 4.28 M/mcL (4.19-5.50); Red Cell Distribution Width 12.7 % (11.5-14.5); Segmented Neutrophils % 65.3 %
[2020-07-27 19:55] LABS: Alanine Aminotransferase 25 Units/L (7-52); Albumin 4.2 g/dL (3.5-5.7); Albumin/Globulin Ratio 1.4 (1.1-2.2); Alkaline Phosphatase 77 Units/L (34-104); Aspartate Amino Transferase 32 Units/L (13-39); BUN/Creatinine Ratio 23 (6-26); Bilirubin,Total 1.5 mg/dL (0.3-1.0); Blood Urea Nitrogen 15 mg/dL (8-23); Calcium 9.5 mg/dL (8.6-10.3); Carbon Dioxide 31 mEq/L (23-29); Chloride 82 mEq/L (98-107); Globulin 3.1 g/dL (2.4-3.5); Glucose 102 mg/dL (70-105); Osmolality,Calculated 255 (280-300); Potassium 3.1 mEq/L (3.5-5.1); Sodium 122 mEq/L (136-145); Total Protein 7.3 g/dL (6.4-8.9); eGFR For African Americans > 60 (> 60); eGFR For Non-African Americans > 60 (> 60)
[2020-07-27] MEDS ORDERED: Potassium Chloride Elixir 20 MEQ/15 ML UDC PO ONE (19:57)
[2020-07-28 00:43] LABS: Bilirubin,Urine Negative (Negative); Blood,Urine Negative (Negative); Clarity,Urine Clear (Clear); Color,Urine Light-Yellow (Yellow); Glucose,Urine (UA) Normal (Normal); Ketones,Urine Negative (Negative); Leukocyte Esterase,Urine Negative (Negative); Nitrite,Urine Negative (Negative); PH,Urine 7.5 pH Units (5.0-8.0); Protein,Urine Trace mg/dL (Neg-Trace); Specific Gravity,Urine 1.015 (1.010-1.025); Urobilinogen,Urine Normal (Normal)
[2020-07-28] MEDS ORDERED: 0.9 % Sodium Chloride 1,000 ML IVC SCH (01:00)
[2020-07-28 01:25] LABS: BUN/Creatinine Ratio 23 (6-26); Blood Urea Nitrogen 14 mg/dL (8-23); Calcium 9.4 mg/dL (8.6-10.3); Carbon Dioxide 32 mEq/L (23-29); Chloride 83 mEq/L (98-107); Glucose 99 mg/dL (70-105); Osmolality,Calculated 253 (280-300); Potassium 3.7 mEq/L (3.5-5.1); Sodium 121 mEq/L (136-145); eGFR For African Americans > 60 (> 60); eGFR For Non-African Americans > 60 (> 60)
[2020-07-28] MEDS: *HR* Heparin 5,000 UNIT/ML VIAL SQ SCH ×2 (05:01→18:26)
[2020-07-28 06:34] LABS: BUN/Creatinine Ratio 22 (6-26); Blood Urea Nitrogen 14 mg/dL (8-23); Calcium 9.1 mg/dL (8.6-10.3); Carbon Dioxide 32 mEq/L (23-29); Chloride 84 mEq/L (98-107); Glucose 88 mg/dL (70-105); Osmolality,Calculated 256 (280-300); Potassium 3.2 mEq/L (3.5-5.1); Sodium 123 mEq/L (136-145); eGFR For African Americans > 60 (> 60); eGFR For Non-African Americans > 60 (> 60)
[2020-07-28] MEDS: Cholecalciferol (D-3) 1,000 UNIT (25MCG) TABLET PO SCH (08:38)
[2020-07-28] MEDS: Metoprolol XL (24 HR) Succ 50 MG TAB.ER.24H PO SCH (08:39)
[2020-07-28] MEDS: Aspirin 81 MG TAB.CHEW PO SCH (08:39)
[2020-07-28] MEDS: lisinopriL 20 MG TABLET PO SCH (08:39)
[2020-07-28 09:50] LABS: BUN/Creatinine Ratio 22 (6-26); Blood Urea Nitrogen 14 mg/dL (8-23); Calcium 9.3 mg/dL (8.6-10.3); Carbon Dioxide 30 mEq/L (23-29); Chloride 86 mEq/L (98-107); Glucose 107 mg/dL (70-105); Osmolality,Calculated 259 (280-300); Potassium 3.2 mEq/L (3.5-5.1); Sodium 124 mEq/L (136-145); eGFR For African Americans > 60 (> 60); eGFR For Non-African Americans > 60 (> 60)
[2020-07-28 11:59] LABS: Magnesium 1.9 mg/dL (1.6-2.6)
[2020-07-28 13:18] LABS: BUN/Creatinine Ratio 19 (6-26); Blood Urea Nitrogen 15 mg/dL (8-23); Carbon Dioxide 29 mEq/L (23-29); Chloride 88 mEq/L (98-107); Glucose 109 mg/dL (70-105); Osmolality,Calculated 259 (280-300); Potassium 3.6 mEq/L (3.5-5.1); Sodium 124 mEq/L (136-145); eGFR For African Americans > 60 (> 60); eGFR For Non-African Americans > 60 (> 60)
[2020-07-28 17:41] LABS: BUN/Creatinine Ratio 23 (6-26); Blood Urea Nitrogen 17 mg/dL (8-23); Calcium 9.2 mg/dL (8.6-10.3); Carbon Dioxide 26 mEq/L (23-29); Chloride 89 mEq/L (98-107); Glucose 109 mg/dL (70-105); Osmolality,Calculated 260 (280-300); Potassium 3.8 mEq/L (3.5-5.1); Sodium 124 mEq/L (136-145); eGFR For African Americans > 60 (> 60); eGFR For Non-African Americans > 60 (> 60)
[2020-07-29 01:21] LABS: Basophils % 0.6 %; Eosinophils # 0.3 K/mcL (0.0-0.6); Eosinophils % 5.8 %; Hematocrit 32.6 % (37.5-50.1); Immature Granulocytes % 0.4 % (0-4); Lymphocytes # 1.3 K/mcL (0.6-4.6); Mean Corpuscular HGB Conc 35.9 g/dL (31.6-35.5); Mean Corpuscular Hemoglobin 30.6 pg (28.0-33.3); Mean Corpuscular Volume 85.3 fL (83.0-100.0); Mean Platelet Volume 8.6 fL (9.4-12.4); Monocytes # 0.5 K/mcL (0.0-1.3); Monocytes % 10.3 %; Neutrophils # 2.6 K/mcL (1.6-8.9); Platelet Count 140 K/mcL (140-400); Red Blood Count 3.82 M/mcL (4.19-5.50); Segmented Neutrophils % 54.9 %; White Blood Count 4.7 K/mcL (4.3-11.1)
[2020-07-29 01:22] LABS: Hemoglobin 11.7 g/dL (12.9-16.9)
[2020-07-29 04:54] LABS: BUN/Creatinine Ratio 28 (6-26); Blood Urea Nitrogen 19 mg/dL (8-23); Calcium 8.8 mg/dL (8.6-10.3); Carbon Dioxide 26 mEq/L (23-29); Chloride 94 mEq/L (98-107); Glucose 94 mg/dL (70-105); Osmolality,Calculated 266 (280-300); Potassium 3.6 mEq/L (3.5-5.1); Sodium 127 mEq/L (136-145); eGFR For African Americans > 60 (> 60); eGFR For Non-African Americans > 60 (> 60)
[2020-07-29] MEDS: *HR* Heparin 5,000 UNIT/ML VIAL SQ SCH ×2 (05:14→17:35)
[2020-07-29] MEDS: lisinopriL 20 MG TABLET PO SCH (08:02)
[2020-07-29] MEDS: Metoprolol XL (24 HR) Succ 50 MG TAB.ER.24H PO SCH (08:02)
[2020-07-29] MEDS: Aspirin 81 MG TAB.CHEW PO SCH (08:02)
[2020-07-29] MEDS: Cholecalciferol (D-3) 1,000 UNIT (25MCG) TABLET PO SCH (08:02)
[2020-07-29] MEDS ORDERED: NON-FORMULARY MEDICATION 1 EACH EACH (Alendronate Sodium [Fosamax] 35 MG) PO SCH (21:50)
[2020-07-30 04:55] LABS: Basophils % 0.8 %; Eosinophils # 0.3 K/mcL (0.0-0.6); Eosinophils % 5.8 %; Hematocrit 33.7 % (37.5-50.1); Hemoglobin 11.9 g/dL (12.9-16.9); Immature Granulocytes % 0.2 % (0-4); Lymphocytes # 1.6 K/mcL (0.6-4.6); Lymphocytes % 29.6 %; Mean Corpuscular HGB Conc 35.3 g/dL (31.6-35.5); Mean Corpuscular Hemoglobin 30.8 pg (28.0-33.3); Mean Corpuscular Volume 87.3 fL (83.0-100.0); Mean Platelet Volume 8.8 fL (9.4-12.4); Monocytes # 0.5 K/mcL (0.0-1.3); Monocytes % 9.4 %; Neutrophils # 2.9 K/mcL (1.6-8.9); Platelet Count 124 K/mcL (140-400); Red Blood Count 3.86 M/mcL (4.19-5.50); Segmented Neutrophils % 54.2 %; White Blood Count 5.3 K/mcL (4.3-11.1)
[2020-07-30 05:09] LABS: BUN/Creatinine Ratio 24 (6-26); Blood Urea Nitrogen 17 mg/dL (8-23); Calcium 8.9 mg/dL (8.6-10.3); Carbon Dioxide 24 mEq/L (23-29); Chloride 98 mEq/L (98-107); Glucose 96 mg/dL (70-105); Osmolality,Calculated 271 (280-300); Potassium 3.9 mEq/L (3.5-5.1); Sodium 130 mEq/L (136-145); eGFR For African Americans > 60 (> 60); eGFR For Non-African Americans > 60 (> 60)
[2020-07-30] MEDS: *HR* Heparin 5,000 UNIT/ML VIAL SQ SCH ×2 (05:09→17:23)
[2020-07-30] MEDS: Cholecalciferol (D-3) 1,000 UNIT (25MCG) TABLET PO SCH (09:07)
[2020-07-30] MEDS: lisinopriL 20 MG TABLET PO SCH (09:08)
[2020-07-30] MEDS: Aspirin 81 MG TAB.CHEW PO SCH (09:09)
[2020-07-30] MEDS: Metoprolol XL (24 HR) Succ 50 MG TAB.ER.24H PO SCH (09:11)
[2020-07-31 04:47] LABS: Hematocrit 33.7 % (37.5-50.1); Hemoglobin 11.6 g/dL (12.9-16.9); Mean Corpuscular HGB Conc 34.4 g/dL (31.6-35.5); Mean Corpuscular Volume 90.1 fL (83.0-100.0); Mean Platelet Volume 8.4 fL (9.4-12.4); Platelet Count 115 K/mcL (140-400); Red Blood Count 3.74 M/mcL (4.19-5.50); Red Cell Distribution Width 13.2 % (11.5-14.5); White Blood Count 5.6 K/mcL (4.3-11.1)
[2020-07-31 05:02] LABS: BUN/Creatinine Ratio 20 (6-26); Blood Urea Nitrogen 14 mg/dL (8-23); Calcium 8.5 mg/dL (8.6-10.3); Carbon Dioxide 23 mEq/L (23-29); Chloride 102 mEq/L (98-107); Glucose 100 mg/dL (70-105); Osmolality,Calculated 273 (280-300); Potassium 4.2 mEq/L (3.5-5.1); Sodium 131 mEq/L (136-145); eGFR For African Americans > 60 (> 60); eGFR For Non-African Americans > 60 (> 60)
[2020-07-31] MEDS: *HR* Heparin 5,000 UNIT/ML VIAL SQ SCH (05:39)
[2020-07-31 07:04] VITALS: BP 152/84
== END 2020-07-31 11:50 | disposition home or self-care (01) | DRG 641 ==
LOC: EMEROOARM 16:21 → 3BNU 16:21
PROVIDERS: ADMIT Student in an Organized Health Care Education/Training Program; ATTEND Student in an Organized Health Care Education/Training Program